=== PATIENT | female | born 1935 | race Two or more races ===

== ENCOUNTER 2019-07-25 12:19 | Inpatient (IN) | payer MEDICARE, MEDICAID ==
[~2019-07-25] VITALS: Ht 172.7 cm; Wt 87.7 kg
[2019-07-25] MEDS ORDERED: SODIUM CHLORIDE 0.9% 1,000 ML IVB ONE (13:15)
[2019-07-25 14:09] LABS: Basophils # (auto) 0.1 uL; Basophils % (auto) 0.4 % (0.0-2.0); Eosinophils # (auto) 0 uL; Eosinophils % (auto) 0.1 % (0.0-7.0); Hematocrit 45.7 % (36.0-46.0); Hemoglobin 15.3 g/dL (12.2-16.2); Lymphocytes # (auto) 2.5 uL; Lymphocytes % (auto) 15.8 % (10.0-50.0); Mean Corpuscular Hemoglobin 29.9 pg (28.0-32.0); Mean Corpuscular Hgb Conc. 33.4 g/dL (32.0-36.0); Mean Corpuscular Volume 89.3 fL (80.0-100.0); Monocytes # (auto) 1.3 uL; Monocytes % (auto) 8.1 % (0.0-12.0); Neutrophils # (auto) 11.9 uL; Neutrophils % (auto) 75.6 % (37.0-80.0); Nucleated Red Blood Cells % 0.1 %; Platelet Count (auto) 200 10^3/uL (140-450); Red Blood Cells 5.11 10^6/uL (4.0-5.20); Red Cell Distribution Width 13.2 % (11.8-14.3); White Blood Cell 15.7 10^3/uL (4.4-10.8)
[2019-07-25 14:34] LABS: INR 1.08 (0.9-1.15); Partial Thromboplastin Time 21.9 sec (23.64-32.05)
[2019-07-25 14:35] LABS: Albumin 3.7 g/dL (3.4-5.0); Calcium 9.1 mg/dL (8.5-10.1)
[2019-07-25 14:39] LABS: BUN/Creatinine Ratio 24.1; Bilirubin, Total 0.4 mg/dL (0.2-1.0); Total Protein 7.5 g/dL (6.4-8.2)
[2019-07-25 15:50] LABS: Urine Bacteria FEW /hpf (None Seen); Urine Blood Negative /uL (Negative); Urine Mucus FEW (None Seen); Urine Specific Gravity 1.018 (1.001-1.035); Urine WBC 12 /hpf (0 - 5)
[2019-07-25] MEDS ORDERED: cefTRIAXone 1GM/50ML D5W 50 ML IV ONE (16:45)
[2019-07-25] MEDS ORDERED: traMADol HCL 50 MG TAB PO PRN (17:15)
[2019-07-25] MEDS ORDERED: TEMAZEPAM 15 MG CAP PO PRN (17:15)
[2019-07-25] MEDS ORDERED: MORPHINE SULF INJ 2 MG/ML SYRINGE 1ML IV PRN (17:15)
[2019-07-25] MEDS ORDERED: ACETAMINOPHEN 500 MG TAB PO PRN (17:15)
[2019-07-25] MEDS ORDERED: DEXTROSE (50%) 50ML SYRG IV PRN (17:15)
[2019-07-25] MEDS ORDERED: ONDANSETRON HCL 4 MG/2 ML VIAL IV PRN (17:15)
[2019-07-25] MEDS ORDERED: NITROGLYCERIN 0.4 MG SL TAB SL PRN (17:15)
[2019-07-25] MEDS: SODIUM CHLORIDE 0.9% 1,000 ML IV SCH (17:58)
[2019-07-25] MEDS ORDERED: METF-370 PO (18:35)
[2019-07-25] MEDS ORDERED: MEMA5TAB2 PO (18:35)
[2019-07-25] MEDS ORDERED: INSU1INJ5 SC (18:35)
--- NOTE | 2019-07-25 21:00 | NUR ---
Telemetry admit from ER JAMES LIZ admitted to Telemetry unit after SBAR received. Patient oriented to MONTRELL ARTHUR RN primary RN, unit, room, bed, and unit policies regarding patient care and visiting hours. Patient now on continuous telemetry monitoring, tele box # 77 and telemetry reading on arrival to unit is sinus rhythm at 66. Patient weighed by bed scale and encouraged to call if they need something. All questions and concerns addressed, patient verbalized understanding.Bed alarm on for patient safety.
[2019-07-25 22:00] VITALS: BP 155/74
[2019-07-25] MEDS: FAMOTIDINE 20 MG TAB PO SCH (22:56)
[2019-07-25] MEDS: ACCU-CHEK COMFORT CURVE STRIP VI SCH (22:56)
[2019-07-25] MEDS: InsuLIN REG 1unit/0.01ml Soln (100units/ml) SC SCH (22:56)
[2019-07-26] MEDS ORDERED: PNEUMOCOCCAL VACC POLYS 25 MCG/0.5 ML VIAL IM ONE (00:15)
--- NOTE | 2019-07-26 01:00 | NUR ---
Darlin-care provided for episode of urinary incontinence and smear of soft brown BM. Urine is light yellow with strong odor. Patient cleansed and repositioned. Patient tolerates well. Bed returned to lowest position and bed alarm in place for patient safety.
[2019-07-26] MEDS: SODIUM CHLORIDE 0.9% 1,000 ML IV SCH ×3 (04:01→23:10)
[2019-07-26 05:00] VITALS: BP 130/95
--- NOTE | 2019-07-26 05:00 | NUR ---
Darlin-care provided due to incontinence of foul smelling light yellow urine. Patient tolerated well. Clean gown provided. Patient tolerates well.
[2019-07-26] MEDS: ACCU-CHEK COMFORT CURVE STRIP VI SCH ×4 (06:33→21:51)
[2019-07-26] MEDS: InsuLIN REG 1unit/0.01ml Soln (100units/ml) SC SCH ×4 (06:33→21:51)
--- NOTE | 2019-07-26 06:34 | NUR ---
Blood glucose Blood glucose checked and is 59. Rechecked and is 63. Patient is asymptomatic- alert and responding appropriately. 8oz orange juice provided. Will reassess.
--- NOTE | 2019-07-26 06:48 | NUR ---
Blood glucose reassessment Blood glucose rechecked and is 69. Patient is alert and responding appropriately. Instructed to eat well when breakfast tray arrives to avoid further episodes of hypoglycemia.
[2019-07-26 06:59] LABS: Basophils # (auto) 0.1 uL; Basophils % (auto) 1.3 % (0.0-2.0); Eosinophils # (auto) 0.3 uL; Eosinophils % (auto) 3.1 % (0.0-7.0); Hematocrit 39.8 % (36.0-46.0); Hemoglobin 13.4 g/dL (12.2-16.2); Lymphocytes # (auto) 2.8 uL; Lymphocytes % (auto) 29.5 % (10.0-50.0); Mean Corpuscular Hemoglobin 30.8 pg (28.0-32.0); Mean Corpuscular Hgb Conc. 33.7 g/dL (32.0-36.0); Mean Corpuscular Volume 91.2 fL (80.0-100.0); Monocytes # (auto) 0.9 uL; Monocytes % (auto) 9.9 % (0.0-12.0); Neutrophils # (auto) 5.2 uL; Neutrophils % (auto) 56.2 % (37.0-80.0); Nucleated Red Blood Cells % 0.1 %; Platelet Count (auto) 184 10^3/uL (140-450); Red Blood Cells 4.36 10^6/uL (4.0-5.20); Red Cell Distribution Width 13.3 % (11.8-14.3); White Blood Cell 9.3 10^3/uL (4.4-10.8)
[2019-07-26 07:36] LABS: Albumin 3.1 g/dL (3.4-5.0); Calcium 8.3 mg/dL (8.5-10.1); Potassium 4.2 mmol/L (3.5-5.1)
[2019-07-26 07:40] LABS: BUN/Creatinine Ratio 29.9; Bilirubin, Total 0.5 mg/dL (0.2-1.0); Total Protein 5.9 g/dL (6.4-8.2)
[2019-07-26 08:46] VITALS: BP 137/76
[2019-07-26] MEDS: cefTRIAXone 1GM/50ML D5W 50 ML IV SCH (09:16)
[2019-07-26] MEDS: FAMOTIDINE 20 MG TAB PO SCH ×2 (10:23→21:51)
[2019-07-26 12:43] VITALS: BP 144/76
[2019-07-26 17:11] VITALS: BP 146/63
--- NOTE | 2019-07-26 19:30 | NUR ---
Opening shift note Assumed care of patient from day shift nurse. Patient is A&O x3. Currently on RA with no S/S of distress or SOB. Denies pain at this time. Patient reports the ability to ambulate at baseline, however, patient has not gotten OOB, and has been incontinent of urine since admission. POC discussed with patient who verbalizes understanding. Bed is in low locked position with side rails up x2. Call light is within reach and patient encouraged to call for assistance when needed. Will continue to monitor for changes PRN.
[2019-07-26 22:00] VITALS: BP 139/74
--- NOTE | 2019-07-26 22:25 | NUR ---
Darlin-care provided due to episode of incontinence of strong smelling, light yellow urine. Patient cleansed and repositioned; skin remains in tact. Tolerated well.
--- NOTE | 2019-07-26 22:30 | NUR ---
While in patient's room, received call from Tele quality technician [employer] reporting that Patient's heart rhythm has converted from sinus rhythm to atrial flutter. Patient is Alert, with no s/s or distress at this time. Denies Chest pain/SOB. Telemetry box leads adjusted to correct position. ECG to be performed.
--- NOTE | 2019-07-26 22:40 | NUR ---
ECG performed. Indicates Sinus arrhythmia at 78 with left bundle branch block. Hospitalist paged to report changes.
--- NOTE | 2019-07-26 22:50 | NUR ---
Hospitalist Received call back from Dr. Prem Junior MD. No new orders at this time, as patient's heart rate remains stable. Will continue to monitor for any further changes.
--- NOTE | 2019-07-27 00:30 | NUR ---
Patient assisted into bathroom to void. Ambulated with assistance without incident. Assisted back into bed upon completion; bed alarm on for patient's safety.
--- NOTE | 2019-07-27 04:40 | NUR ---
Assisted patient into the restroom to void. Patient tolerated well.
[2019-07-27 05:00] VITALS: BP 138/82
[2019-07-27] MEDS: ACCU-CHEK COMFORT CURVE STRIP VI SCH (06:25)
[2019-07-27] MEDS: InsuLIN REG 1unit/0.01ml Soln (100units/ml) SC SCH (06:25)
[2019-07-27 08:48] VITALS: BP 133/72
[2019-07-27] MEDS: cefTRIAXone 1GM/50ML D5W 50 ML IV SCH (10:04)
[2019-07-27] MEDS: SODIUM CHLORIDE 0.9% 1,000 ML IV SCH (10:05)
[2019-07-27] MEDS: FAMOTIDINE 20 MG TAB PO SCH (10:05)
[2019-07-27 13:00] VITALS: BP 144/61
--- NOTE | 2019-07-27 14:04 | NUR ---
Discharge Went over discharge paperwork with patient. Removed ID bands. Removed IV. Removed telemetry and sent to ICU. Gave prescription to patient. Gave pneumonia vaccination IM as ordered to [facility]. Patient called family member and is waiting for a ride home. Patient put on her own dress from home. Taking all personal belongings with her.
== END 2019-07-27 15:00 | disposition home or self-care (01) | DRG 871 ==
LOC: ER 12:19 → EDBD 12:19 → TELE 12:20 → TELE-WESTW 20:55
PROVIDERS: ADMIT Internal Medicine; ATTEND Internal Medicine
DX: A41.9 Sepsis, unspecified organism (principal); G92 Toxic encephalopathy; N17.0 Acute kidney failure with tubular necrosis; N39.0 Urinary tract infection, site not specified; Z86.73 Personal history of transient ischemic attack (TIA), and cerebral infarction without residual deficits; Z85.3 Personal history of malignant neoplasm of breast; N18.3 Chronic kidney disease, stage 3 (moderate); E11.22 Type 2 diabetes mellitus with diabetic chronic kidney disease; Z79.4 Long term (current) use of insulin; Z90.12 Acquired absence of left breast and nipple; Z90.710 Acquired absence of both cervix and uterus; Z89.422 Acquired absence of other left toe(s); Z23 Encounter for immunization
CPT/HCPCS: 36415; 70450; 71045; 80053; 81001; 82962; 83036; 83735; 84484; 85025; 85610; 85730; 87086; 87088; 87186; 93005; G0378; J0696; J1815